=== PATIENT | female | born 1990 | race Caucasian/White ===

== ENCOUNTER → 2020-01-04 13:29 | Outpatient (CLI) | payer MEDICAID, SELFPAY ==
[2020-01-04 14:13] LABS: Hemoglobin 12.2 g/dL (12.0-15.0); Mean Corp Hgb Conc 33.9 g/dL (32-36); Mean Corpuscular Volume 91.6 fL (81-99); Mean Platelet Vol. 10.8 fl (6.2-12.0); Platelet Count 199 K/mm3 (150-450); RBC Distribution Width CV 12.7 % (11.6-14.6); RBC Distribution Width SD 42.1 fl (35.1-43.9); Red Blood Count 3.93 M/mm3 (4.2-5.4); White Blood Count 10.9 K/mm3 (4.4-11.0)
[2020-01-04 14:27] LABS: Glucose Challenge Gest 1H 50g 84 mg/dL (70-140)
== END ==
PROVIDERS: Visit Provider Obstetrics & Gynecology
DX: Z34.83 Encounter for supervision of other normal pregnancy, third trimester (principal)
CPT/HCPCS: 36415; 82950; 85027

== ENCOUNTER → 2020-01-29 15:37 | Outpatient (CLI) | payer MEDICAID, SELFPAY ==
[2020-01-29 16:51] LABS: Hematocrit 35.2 % (37-47); Hemoglobin 11.5 g/dL (12.0-15.0); Mean Corp Hgb Conc 32.7 g/dL (32-36); Mean Corpuscular Hgb 30.1 pg (27.0-32.0); Mean Corpuscular Volume 92.1 fL (81-99); Platelet Count 172 K/mm3 (150-450); RBC Distribution Width CV 12.7 % (11.6-14.6); RBC Distribution Width SD 42.9 fl (35.1-43.9); Red Blood Count 3.82 M/mm3 (4.2-5.4); White Blood Count 11.6 K/mm3 (4.4-11.0)
[2020-01-29 17:06] LABS: Protein, Urine (Random) 16.6 mg/dL (<11.9); Protein:Creat Ratio 177 mg/g CRE (0-200)
[2020-01-29 17:12] LABS: ALB/GLOB Ratio 0.6 RATIO (0.9-2.4); AST(SGOT) 13 U/L (15-37); Alanine Aminotransfer ALT/SGPT 20 U/L (13-56); Albumin, Serum 2.7 g/dL (3.2-5.0); Alkaline Phosphatase 117 U/L (45-117); Anion Gap 6 (5-15); BUN 7 mg/dL (7-18); BUN/Creat Ratio 13.4 RATIO (10-20); Chloride 107 mmol/L (98-107); Creatinine, Serum 0.52 mg/dL (0.55-1.02); EST Glomerular Filtration Rate 147 mL/min (>60); Est Glom Filt Rate - Afr Amer 178 mL/min (>60); Globulin 4.5 g/dL (2.2-4.2); Glucose 74 mg/dL (74-106); LDH 141 U/L (84-246); Potassium 3.7 mmol/L (3.5-5.1); Protein, Total 7.2 g/dL (6.4-8.2); Sodium Level 136 mmol/L (136-145)
== END ==
PROVIDERS: Visit Provider Student in an Organized Health Care Education/Training Program
DX: O13.9 Gestational [pregnancy-induced] hypertension without significant proteinuria, unspecified trimester (principal); Z3A.00 Weeks of gestation of pregnancy not specified
CPT/HCPCS: 36415; 80053; 82570; 83615; 84156; 85027; 87077; 87086; 87088

== ENCOUNTER → 2020-02-22 17:01 | Outpatient (CLI) | payer MEDICAID, SELFPAY ==
[2020-02-22 18:05] LABS: Hematocrit 34.8 % (37-47); Hemoglobin 11.8 g/dL (12.0-15.0); Mean Corp Hgb Conc 33.9 g/dL (32-36); Mean Corpuscular Hgb 31.4 pg (27.0-32.0); Mean Corpuscular Volume 92.6 fL (81-99); Mean Platelet Vol. 10.9 fl (6.2-12.0); Platelet Count 183 K/mm3 (150-450); RBC Distribution Width CV 13.1 % (11.6-14.6); RBC Distribution Width SD 43.5 fl (35.1-43.9); Red Blood Count 3.76 M/mm3 (4.2-5.4); White Blood Count 11.4 K/mm3 (4.4-11.0)
[2020-02-22 18:29] LABS: ALB/GLOB Ratio 0.6 RATIO (0.9-2.4); AST(SGOT) 17 U/L (15-37); Alanine Aminotransfer ALT/SGPT 29 U/L (13-56); Albumin, Serum 2.8 g/dL (3.2-5.0); Alkaline Phosphatase 133 U/L (45-117); Anion Gap 7 (5-15); BUN 9 mg/dL (7-18); BUN/Creat Ratio 14.9 RATIO (10-20); Calcium,Total 9.2 mg/dL (8.5-10.1); Chloride 108 mmol/L (98-107); Creatinine, Serum 0.61 mg/dL (0.55-1.02); EST Glomerular Filtration Rate 124 mL/min (>60); Est Glom Filt Rate - Afr Amer 150 mL/min (>60); Globulin 4.7 g/dL (2.2-4.2); Glucose 103 mg/dL (74-106); LDH 158 U/L (84-246); Potassium 3.6 mmol/L (3.5-5.1); Protein, Total 7.5 g/dL (6.4-8.2); Sodium Level 137 mmol/L (136-145)
[2020-02-22 18:36] LABS: Protein, Urine (Random) 51.1 mg/dL (<11.9); Protein:Creat Ratio 197 mg/g CRE (0-200)
== END ==
PROVIDERS: Visit Provider Student in an Organized Health Care Education/Training Program
DX: Z36.85 Encounter for antenatal screening for Streptococcus B (principal); R03.0 Elevated blood-pressure reading, without diagnosis of hypertension
CPT/HCPCS: 36415; 80053; 82570; 83615; 84156; 85027; 87081; 87086

== ENCOUNTER 2020-02-27 12:05 | Outpatient (CLI) | payer MEDICAID, SELFPAY ==
[2020-02-27 12:35] VITALS: BP 136/84; PULSE 92; TEMP 36.6
[2020-02-27 12:37] VITALS: PULSE 97; O2SAT 97
[2020-02-27 12:38] VITALS: BMI 53.9
--- NOTE | 2020-02-27 12:48 | NURSING ---
1246-pt here for celestone injection, blood presure check and pre-e labs, to start 24 hour urine. orders called in prior to pt arrival
[2020-02-27 12:51] VITALS: BP 135/79; PULSE 86
[2020-02-27 13:06] LABS: Hematocrit 34.1 % (37-47); Hemoglobin 11.5 g/dL (12.0-15.0); Mean Corp Hgb Conc 33.7 g/dL (32-36); Mean Corpuscular Volume 91.9 fL (81-99); Mean Platelet Vol. 10.9 fl (6.2-12.0); Platelet Count 170 K/mm3 (150-450); RBC Distribution Width CV 13.1 % (11.6-14.6); RBC Distribution Width SD 43.3 fl (35.1-43.9); Red Blood Count 3.71 M/mm3 (4.2-5.4); White Blood Count 10.4 K/mm3 (4.4-11.0)
[2020-02-27 13:21] VITALS: BP 133/75; PULSE 94
[2020-02-27 13:37] LABS: Protein, Urine (Random) 30.3 mg/dL (<11.9); Protein:Creat Ratio 135 mg/g CRE (0-200)
[2020-02-27] MEDS: Betamethasone/Betamethasone 30 MG/5 ML Vial 12 MG IM (13:37)
[2020-02-27 13:46] LABS: AST(SGOT) 18 U/L (15-37); Alanine Aminotransfer ALT/SGPT 33 U/L (13-56); Creatinine, Serum 0.44 mg/dL (0.55-1.02); EST Glomerular Filtration Rate 182 mL/min (>60); Est Glom Filt Rate - Afr Amer 220 mL/min (>60); Estimated Creatinine Clearance 169.76 ml/min; Uric Acid 3.9 mg/dL (2.6-6.0)
--- NOTE | 2020-02-27 15:23 | NURSING ---
1521- pt was seen in the office prior to coming into the hospital.
[2020-02-28 16:37] LABS: 24 Hour Urine Protein 237.9 mg/24HR (<150 MG/24HR); 24HR. UA Prot. Total Volume 775 mL; Urine Protein (24 Hour) 30.7 mg/dL (<11.9)
--- NOTE | 2020-03-05 07:19 | OB.TRI.NOTE ---
History of Present Illness Was patient seen by the physician?: No Reason For Visit: BP CHECK/INJECTION Date of Service: 02/27/20 Final SAMANTA: 03/16/20 Final SAMANTA Source: US <20 weeks Gestational age: 38 Weeks and 3 Days History of Present Illness: 36+ week intrauterine with gestational hypertension presents for Celestone injection. Allergies No Known Allergies Allergy (Verified 02/27/20 12:51) Laboratory Studies: Laboratory Tests 02/27/20 02/27/20 02/27/20 Range/Units 13:07 12:51 12:45 WBC (4.4-11.0) K/mm3 RBC (4.2-5.4) M/mm3 Hgb (12.0-15.0) g/dL Hct (37-47) % MCV (81-99) fL MCH (27.0-32.0) pg MCHC (32-36) g/dL RDW Std Deviation (35.1-43.9) fl RDW Coeff of Josie (11.6-14.6) % Plt Count (150-450) K/mm3 MPV (6.2-12.0) fl Creatinine 0.44 L (0.55-1.02) mg/dL Estim Creat Clear Calc 169.76 ml/min Est GFR (MDRD) Af Amer 220 (>60) mL/min Est GFR (MDRD) Non-Af 182 (>60) mL/min Uric Acid 3.9 (2.6-6.0) mg/dL AST 18 (15-37) U/L ALT 33 (13-56) U/L U Random Total Protein 30.3 H (<11.9) mg/dL Urine Collection Time 24.0 (24.0) HOURS Timed Urine Volume 775 mL Urine Creatinine 225.00 (NO RANGE EST.) mg/dL Ur Total Protein 24 Hr 237.9 H (<150 MG/24HR) mg/24HR Protein/Creatinin Ratio 135 (0-200) mg/g CRE Urine Total Protein 30.7 H (<11.9) mg/dL 02/27/20 Range/Units 12:45 WBC 10.4 (4.4-11.0) K/mm3 RBC 3.71 L (4.2-5.4) M/mm3 Hgb 11.5 L (12.0-15.0) g/dL Hct 34.1 L (37-47) % MCV 91.9 (81-99) fL MCH 31.0 (27.0-32.0) pg MCHC 33.7 (32-36) g/dL RDW Std Deviation 43.3 (35.1-43.9) fl RDW Coeff of Josie 13.1 (11.6-14.6) % Plt Count 170 (150-450) K/mm3 MPV 10.9 (6.2-12.0) fl Creatinine (0.55-1.02) mg/dL Estim Creat Clear Calc ml/min Est GFR (MDRD) Af Amer (>60) mL/min Est GFR (MDRD) Non-Af (>60) mL/min Uric Acid (2.6-6.0) mg/dL AST (15-37) U/L ALT (13-56) U/L U Random Total Protein (<11.9) mg/dL Urine Collection Time (24.0) HOURS Timed Urine Volume mL Urine Creatinine (NO RANGE EST.) mg/dL Ur Total Protein 24 Hr (<150 MG/24HR) mg/24HR Protein/Creatinin Ratio (0-200) mg/g CRE Urine Total Protein (<11.9) mg/dL Physical Exam Vitals: Vital Signs Temp Pulse BP Pulse Ox 97.9 F 94 133/75 H 97 02/27/20 12:35 02/27/20 13:21 02/27/20 13:21 02/27/20 12:37 Impression/Plan 37+ weeks gestation with anticipated delivery later this week for gestational hypertension. For steroid injection to assist lung maturity.
== END 2020-02-27 13:45 | disposition home or self-care (01) ==
LOC: WPOUT 12:07 → WP 12:08
PROVIDERS: Referring Provider Obstetrics & Gynecology; Visit Provider Obstetrics & Gynecology
DX: O13.3 Gestational [pregnancy-induced] hypertension without significant proteinuria, third trimester (principal); Z3A.37 37 weeks gestation of pregnancy
CPT/HCPCS: 36415; 82565; 82570; 84156; 84450; 84460; 84550; 85027; 99218; G0378; J0702

== ENCOUNTER 2020-02-28 13:43 | Outpatient (CLI) | payer MEDICAID, SELFPAY ==
[2020-02-27 12:38] VITALS: BMI 53.9
[2020-02-28 14:03] VITALS: BP 162/85; PULSE 102
[2020-02-28] MEDS: Betamethasone/Betamethasone 30 MG/5 ML Vial 12 MG IM (14:06)
[2020-02-28 14:15] VITALS: BP 134/74; PULSE 86
[2020-02-28 14:25] VITALS: BP 130/71; PULSE 87
--- NOTE | 2020-02-28 14:30 | NURSING ---
Patient on unit for celestone injection. Rapid Covid test and 24 hour urine sent to lab. 12mg Celestone given IM in right thigh. BP 162/85, 134/74 and 130/71. Dr Lamar called and ok with discharge home. Patient to be on bedrest until coming in tomorrow for csection. Patient verbalized understanding and ambulated off unit at 1430
--- NOTE | 2020-03-05 07:29 | OB.TRI.NOTE ---
History of Present Illness Date of Service: 02/28/20 Was patient seen by the physician?: No Reason For Visit: INJECTION Date of Service: 02/28/20 Final SAMANTA: 03/16/20 Final SAMANTA Source: US <20 weeks Gestational age: 37 Weeks and 3 Days History of Present Illness: 37+ week intrauterine presents for second injection of Celestone. Due for delivery later in the week for gestational hypertension. Patient also presents with 24-hour urine which she started yesterday. Allergies No Known Allergies Allergy (Verified 02/27/20 12:51) Physical Exam Vitals: Vital Signs Pulse BP 87 130/71 H 02/28/20 14:25 02/28/20 14:25 Impression/Plan Early 37+ week intrauterine with anticipated delivery later in the week for gestational hypertension. Celestone given. Return for scheduled section.
== END 2020-02-28 14:30 | disposition home or self-care (01) ==
LOC: WPOUT 13:44 → WP 13:45
PROVIDERS: Referring Provider Obstetrics & Gynecology; Visit Provider Obstetrics & Gynecology
DX: O13.3 Gestational [pregnancy-induced] hypertension without significant proteinuria, third trimester (principal); Z3A.37 37 weeks gestation of pregnancy
CPT/HCPCS: 87426; 96372; 99218; G0378; J0702

== ENCOUNTER 2020-02-29 05:10 | Inpatient (IN) | payer MEDICAID, SELFPAY ==
[2020-02-29] VITALS (22 sets, daily range): BP systolic 96–135; BP diastolic 55–76; PULSE 59–106; RESP 14–18; TEMP 36.1–36.7; O2SAT 94–99; BMI 56.3
[2020-02-29] MEDS: Lactated Ringers 1,000 ML 999 ML IV (05:35)
[2020-02-29] MEDS: Acetaminophen 500 MG Tablet 1000 MG PO ×3 (05:45→18:13)
[2020-02-29 05:56] LABS: Absolute Lymphocyte Count 1.12 X10^3/uL (0.83-4.51); Absolute Neutrophil Count 8.6 X10^3/uL (2.0-7.7); Basophil# 0.02 X10^3/uL; Basophil% 0.2 % (0-1); Hematocrit 33.1 % (37-47); Hemoglobin 10.7 g/dL (12.0-15.0); Lymphocyte # 1.12 X10^3/ul (4.0); Lymphocyte % 10.9 % (19-41); Mean Corp Hgb Conc 32.3 g/dL (32-36); Mean Corpuscular Hgb 30.7 pg (27.0-32.0); Mean Corpuscular Volume 95.1 fL (81-99); Mean Platelet Vol. 10.8 fl (6.2-12.0); Monocyte% 3.9 % (0-10); NRBC Flagged by Analyzer 0 % (0-5); Neutrophil # 8.61 X10^3/uL (2.7-7.7); Neutrophil % 83.4 % (47-70); Platelet Count 167 K/mm3 (150-450); RBC Distribution Width CV 12.9 % (11.6-14.6); RBC Distribution Width SD 44.5 fl (35.1-43.9); Red Blood Count 3.48 M/mm3 (4.2-5.4); White Blood Count 10.3 K/mm3 (4.4-11.0)
[2020-02-29 06:13] LABS: Amphetamine Urine VISTA NEGATIVE (<1000 ng/mL); Barbiturate Urine VISTA NEGATIVE (< 200 ng/mL); Benzodiazepine Urine VISTA NEGATIVE (< 200 ng/mL); Cocaine Urine VISTA NEGATIVE (< 300 ng/mL); Ecstacy Urine VISTA NEGATIVE (< 500 ng/mL); Methadone Urine VISTA NEGATIVE (< 300 ng/mL); PCP Urine VISTA NEGATIVE (< 25 ng/mL); THC Urine VISTA POSITIVE (< 50 ng/mL); Vista UDS pH Range 6
[2020-02-29] MEDS: Lactated Ringers 1,000 ML 150 ML IV (06:35)
[2020-02-29] MEDS: Sodium Citrate/Citric Acid 30 ML UDC PO (07:06)
--- NOTE | 2020-02-29 07:19 | PCM.HP.BLA ---
History and Physical Date of Admission: 02/29/20 ACOG ANTEPARTUM RECORD - HISTORY AND PHYSICAL (02/29/2020) Name: EARLINE GREER History of This : This is a 29-year-old AB 4 who presents for primary section. She reports an extremely difficult vaginal vacuum assisted delivery with the last and does not desire to have labor. She also has a history of a repaired septated uterus in 2016. Recently she has had issues with gestational hypertension which is worsening with headaches reported. Given this she was given steroids to assist lung maturity and we plan delivery today at 37+ weeks gestation. OB Physician: JONY 's Physician: [facility] ...................................................................... : 1990 Age: 29 Address: [address] [place] [address] Phone: (h) [phone] ([phone] Insurance Carrier: [facility] [id number] Emergency Contact: NONE ...................................................................... Final SAMANTA: 03/16/20 By Ultrasound: PARITY: (G-Total Pregnancies P-Fullterm,Premature,Induced AB,Spont AB, Ectopics, Multiple,Living) SAMANTA CONFIRMATION: By LMP: 06/11/19 Final SAMANTA: 03/16/20 OB PROBLEM LIST: Needs ECHO after delivery per MFM Please enc office Class for Oct 3. 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 Obesity Prior Gestation Hypertension 2017 Recurrent losses; septated uterus = repaired 2015 --then had Seeing MFM for serial growth scans monthly Vac extraction delivery history ALLERGIES: Nicoderm CQ Rash, itching Wellbutrin Hives and/or rash MEDICATIONS: 28 mg iron-800 mcg tablet One pill by mouth once a day Valtrex 1 gram tablet once daily SOCIAL HISTORY: Smoking - Quit in 2015 Alcohol Use - RARELY not while Diet - balanced Diet, caffeine < 2 drinks per day and water tries for 5 20 oz bottles Lifestyle - low stress lifestyle Exercise - regular and walking 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 Illicit Drug Use - uses marijuana and stopped upon realizing Sexual Activity - Residence - lives with and and son Place of - [place] Hours Worked - 26 Spouse-Sig Other Name - Cassius Spouse-Sig Other Occupation - data warehouse consultant Spouse-Sig Other Phone No - [phone] Children Name(s) - Josué PRIOR DELIVERY HISTORY DEL DATE GEST LAB WT LB WT OZ TYPE ANES LABOR TX May 13 18 0 0 0 Sab None No May 14 12 0 0 0 Sab None No May 15 7 0 0 0 Sab None May 17 7 0 0 0 Sab None No Mar 19 37 48 6 6 Vag/V Epidural No ANTEPARTUM FLOW CHART VISIT GE RTC FU F F OR U U DATE WK MD WKS HT PN HR M SS BP ED WT OR GL D EF ST __ ____ ___ __ __ ___ __ __ __ ___ __ __ __ ___ __ 27 Oct 37 JMW 1 36 + + 140/76 sl 319 tr - 22 Oct 36 CM 1 37 V + + 162/80 sl 324 1+ ne 15 Jan 35 JMW 1 35 + + 110/86 sl 325 tr - 08 Jan 34 JMW 1 35 V + + 130/90 0 321 tr - 30 Sep 33 JMW 1 33 + + 136/80 sl 319 tr - 28 Sep 33 CM 1 35 + de 128/84 sl 322 tr - 18 Sep 31 JM 2 31 V + + 124/78 0 315 - - 10 Jan 30 + 128/80 0 309 - - 03 Jan 29 JMW 2 30 + + 110/68 0 308 - - 13 Dec 26 JMW 3 26 + + 136/82 sl 303 - - ANTEPARTUM NOTE(S): Feb 27 2020: see prog note, PIH labs; arslan POST; this week Feb 21 2020: Feb 14 2020: feeling well. Cxs on and off yesterday. AM, MFM growth u/s Feb 08 2020: feeling well., No PIH Sxs Jan 30 2020: No PIH sxs; MFM doing serial growths weekly Jan 29 2020: Decreased FM; BPP 12/08Jan 18 2020: No complaints Jan 10 2020: Jan 03 2020: Good FM, One Hr PG today Dec 14 2019: Feeling Well, Glucola/Instructions Given,Good FM COMPREHENSIVE ANTEPARTUM NOTE(S): Feb 27 2020: Earline is here today for visit. Patient states that she has been having problems with elevated blood pressures over the past couple of weeks. Patient states that she had an elevated BP this morning which was taken at office where she works. Patient states that she has been having visual floaters for a couple weeks. She had a headache Wednesday and Wednesday but no headache today. Patient states that she has been having n/v over the past couple of weeks as well but vomiting noted this morning. Patient does state at work they have her sit and use a large cuff. Patient's BP Left upper arm today sitting and large BP cuff. Patient denies any fevers. Jlb Feb 22 2020: Earline is here for PNV. States good FM. Had US at [facility] today and was told it looked good. Having CTX but they go away when she rests. Swelling noted in ankles and hands with associated carpal tunnel bilateral. Has questions regarding the birthing process at [facility]. Had a difficult first vaginal delivery and is considering c-sec. Urine dipped 1+ and neg. BP elevated 162/80. LARC form declined and signed. BP retake after 15 min is 148/80. LSS Feb 22 2020: 36/5w visit. GBS done, LARC declined would like Nuvaring. HSV on acyclovir. Elevated BP today, repeat still hypertensive rage but improved. Asymptomatic, labs drawn today in office. Hx of demise, getting testing with [facility]. COVID testing done today as pt may need induced next week. F/u 1w. Feb 22 2020: Order COVID testing faxed to [facility] per Dr. Monika Geller. [facility] Jan 28 2020: 33/2w visit acute for elevated BPs at work systolic 150s.BP wnl today. Asymptomatic aside from LE edema and some nausea over the past 1w. Labs drawn today. Reports decreased FM, BPP 8/8. Has apt this week, keep as scheduled. Precautions given. Jan 19 2020: Earline is here for a PNV with her 2 y.o. son. Good FM. No edema present. Denies any complaints or concerns. MK Jan 11 2020: Earline is here for a B/P check at 30 w 5 d. She had an elevated B/P at [facility] on 12/28/2019, and a headache with floaters on Wednesday. Denies headache since Wednesday. Denies further visual disturbances. Denies epigastric pain. No edema noted. She denies spotting/cramping/LoF. Good FM reported. B/P 128/80 (large cuff, L arm, sitting). Report to Dr. Lamar, no new orders, Earline is to keep her previously scheduled PNV appointment for next week. She will call if she notes any problems. AW Jan 10 2020: Esther from [facility] called to say she is faxing echo results from visit yesterday and growth US from 12/28/19. Also wants to advise BP 148/77 yesterday and informed Earline to call us w/any POST, visual changes, abdominal pain. I called Earline this morning and attempted to have her come to the office today for BP check, but she is not able to come. Appt given for tomorrow morning on nurse schedule. She had a POST w/visual floaters noted evening, but none yesterday and none today. Advised if she would have Sx today, to come in for appt today if possible. Otherwise will see her in the morning. Jan 04 2020: Earline is here today for PNV. Had her glucola test today. Good FM. No edema noted. No CTX noticed. Feeling well with no complaints. Urine dipped neg and neg today. LSS Dec 13 2019: TELEHEALTH NOB TRANSFER- Earline is a 29 yo G 6 P 1 with SAMANTA 11-14-20 planning a vag del with epidural using [facility] for post discharge ped care and to breastfeed. 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 Her , Cassius is a data warehouse consultant. The was planned and they are happy. They have a 2 1/2 yo son, Josué. Earline is allergic to Wellbutrin and the nicotine patch. She has no allergies to food, latex or the environment. Her diet sounds balanced w one cup of coffee daily and 5 20 oz bottles of water. Enc to get as close to one gallon daily as she can. She takes a 20-30 minute walk most evenings. Enc to continue this. She does not drink alcohol in , used to smoke but quit in [address] use. Of note is initial labs were positive for marijuana. She said she quit upon realizing the . Medical history includes obesity, hypertension, HSV type 2, depression and anxiety (mostly due to multiple SABs). Family history includes depression, alcoholism, heart disease, hypertension and colon cancer. US and labs were done previously at [facility]. Earline has no cats but she is aware of litter box issues. She's had a varicella vaccine. Warning signs in pg reviewed as well as wearing her seatbelt very low on her abd, the importance of protein in her diet, lifting restriction of 25# and otc meds ok to take. Tomorrow at her first visit here she needs all office OB info and a copy of What to Expect. did not go well last time re to 37 week baby with long induction labor and jaundice. Office Class in January suggested. Enc to call with any questions. Visit took 45 min. Niko DUBOSE. REVIEW OF SYSTEMS: GENERAL - Denies fever, or chills SKIN - Denies rash, new skin lesions, or change in moles EYES - Denies blurred vision, or change in visual acuity EARS - Denies ear pain, or difficulty hearing NOSE - Denies nasal congestion, discharge, or bleeding MOUTH - Denies sore throat, or difficulty swallowing NECK - Denies pain or swelling RESPIRATORY - Denies shortness of breath, cough, wheezing CARDIOVASCULAR - Denies palpitations, chest pain, orthopnea, PND, peripheral edema, syncope or claudication GASTROINTESTINAL - Denies nausea, vomiting, diarrhea, constipation, Denies abdominal pain, melena and or bright red blood GENITOURINARY - Denies dysuria, frequency of urination, urgency, or hesitancy MUSCULOSKELETAL - Denies joint or muscle pain, or back pain NEUROLOGICAL - Denies localized numbness, weakness, or tingling PSYCHIATRIC - Denies depression, anxiety, substance abuse or suicide attempts ENDOCRINE - Denies heat or cold intolerance, weight loss or gain, increasing thirst HEMATO-IMMUNOLOGIC - Denies easy bruising, bleeding, oral ulcerations or recurrent infections GENETICS SCREENING: Age 35+ years: No Thalassemia: No Neural Tube Defect: No Down Syndrome: No BRIDGER-SACHS: No Sickle Cell Disease: No Hemophilia: No Musc. Dystrophy: No Cystic Fibrosis: No-declines screening Jasper Chorea: No Mental Retardation: No Fragile X: No Other genetic: No Other defects: No SABs/still births: Yes x4 Drugs since LMP: Yes INFECTION HISTORY: High risk AIDS: No High risk Hepatitis: No Exposed to TB: No Exposed to Herpes: No Rash/viral illness since LMP: No History of STD: No MENSTRUAL HISTORY: *Menses Regularity: Regular* PAST SUMMARY: PARITY: 1. Total Pregnancies............ 6 2. Full Term Pregnancies........ 1 3. Premature.................... 0 4. Abortions - Induced.......... 0 5. Abortions - Spontaneous...... 4 6. Ectopics..................... 0 7. Multiple Births.............. 0 8. Living Children.............. 1 PAST #1: Date of :.................. 05/03/10 Gestation Weeks:................ 18 Length of labor(hours):......... 0 Sex:............................ Weight-lbs:............... 0 Weight-oz:................ 0 Type of Delivery:............... Sab Type of Anesthesia:............. None Place of Delivery:.............. HOME Treatment of Labor?:.... No Comment: PAST #2: Date of :.................. 05/03/11 Gestation Weeks:................ 12 Length of labor(hours):......... 0 Sex:............................ Weight-lbs:............... 0 Weight-oz:................ 0 Type of Delivery:............... Sab Type of Anesthesia:............. None Place of Delivery:.............. [facility] Treatment of Labor?:.... No Comment: PAST #3: Date of :.................. 05/03/12 Gestation Weeks:................ 7 Length of labor(hours):......... 0 Sex:............................ Weight-lbs:............... 0 Weight-oz:................ 0 Type of Delivery:............... Sab Type of Anesthesia:............. None Place of Delivery:.............. [place] Treatment of Labor?:.... No Comment: PAST #4: Date of :.................. 05/03/14 Gestation Weeks:................ 7 Length of labor(hours):......... 0 Sex:............................ Weight-lbs:............... 0 Weight-oz:................ 0 Type of Delivery:............... Sab Type of Anesthesia:............. None Place of Delivery:.............. [facility] Treatment of Labor?:.... No Comment: D AND C PAST #5: Date of :.................. 03/31/17 Gestation Weeks:................ 37 Length of labor(hours):......... 48 Sex:............................ M Weight-lbs:............... 6 Weight-oz:................ 6 Type of Delivery:............... Vag/Vac Type of Anesthesia:............. Epidural Place of Delivery:.............. [facility] Treatment of Labor?:.... No Comment: RAFAELA, SHELLY, PHYSICAL EXAMINATION General Appearence: 29 yo female in no acute distress Vital Signs: AF, VSS Heart: RRR without rubs or gallops Lungs: CTA x 2 Breasts: deferred Abdomen: gravid Pelvis: Cervix: Presentation: cephalic Station: Fetus: Size: AGA Movement: present Heart: present Labs for : EARLINE GREER since 06/20/2019 ORDER DATEIN DESCRIPTION VALUE UNITS RANGE A+ COMMENT TYPE AND SCREEN 02/29/20 Reason for Type AND Screen/Red Cells: SURGERY Type of Surgery: [facility]~[address] [place], [address]~ BLOOD TYPE GEL O POSITIVE N ANTIBODY SCREEN NEGATIVE N URINE DRUG SCREEN (VISTA) 02/29/20 NOTE Original Ordering Provider: Melita Lamar TO BE CONFIRMED CONFIRMATORY TESTING FOR ALL POSITIVE URINE DRUG SCREEN RESULTS WILL ONLY BE SENT OUT UPON PHYSICIAN ORDER. VISTA Urine Drug Screen methods provide only preliminary analytical test results. A more specific alternate chemical method must be used in order to obtain a confirmed analytical result. Gas chromatography/mass spectrometery (GC/MS) is the preferred confirmatory method. Clinical consideration and professional judgement should be applied to any drug of abuse test result, particularly when preliminary positive results are used. URINE TCA TESTING MUST BE ORDERED SEPARATELY. USE TEST MNEMONIC: [facility]IST[facility] UDS PH 6 AMPHETAMINES NEGATIVE <1000 ng/mL BARBITIURATES NEGATIVE < 200 ng/mL BENZODIAZIPINE NEGATIVE < 200 ng/mL COCAINE NEGATIVE < 300 ng/mL ECSTACY NEGATIVE < 500 ng/mL METHADONE NEGATIVE < 300 ng/mL OPIATES NEGATIVE < 300 ng/mL PCP NEGATIVE < 25 ng/mL THC POSITIVE < 50 ng/mL H CBC W/DIFF, AUTOMATED 02/29/20 NOTE Original Ordering Provider: Melita Lamar WBC 10.3 K/mm3 4.4-11.0 RBC 3.48 M/mm3 4.2-5.4 L HGB 10.7 g/dL 12.0-15.0 L HCT 33.1 % 37-47 L MCV 95.1 fL 81-99 MCH 30.7 pg 27.0-32.0 MCHC 32.3 g/dL 32-36 RDW CV 12.9 % 11.6-14.6 RDW SD 44.5 fl 35.1-43.9 H PLT 167 K/mm3 150-450 MPV 10.8 fl 6.2-12.0 NEUT% 83.4 % 47-70 H LY% 10.9 % 19-41 L MONO% 3.9 % 0-10 EO% 0.0 % 0-5 BASO% 0.2 % 0-1 IM GRAN % 1.600 % 0.0-0.9 H IG% - Immature Granulocytes (promyelocytes, myelocytes and metamyelocytes) > 1% indicates that a LEFT SHIFT is Present. ABSOLUTE NEUT 8.6 X10 3/uL 2.0-7.7 H ABSOLUTE LYMPH 1.12 X10 3/uL 0.83-4.51 NRBC, FLAGGED 0 % 0-5 COVID 19 AG RAPID (RN COLLECT) 02/28/20 NOTE Original Ordering Provider: Melita Lamar COVID AG -RAPID *Negative results from patients with symptom onset beyond five days should be treated as presumptive and confirmed by a molecular assay if clinically necessary. Negative results should not be used as the sole basis for treatment or for patient management. *Positive results do not differentiate between SARS-CoV and SARS-CoV-2. If differentation of the specific SARS virus is desired an additional sample and an additional order is required. * This test has not been FDA cleared or approved; the test has been authorized by FDA under an Emergency Use Authorization (EAU) for use by laboratories certified under CLIA that meet the requirements to perform moderate, high, or waived complexity tests. Normal Reference Range: Negative Testing performed on Quidel Cari analyzer ELLIOT (lateral flow immunofluorescent assay) SARS-CoV-2 (COVID 19) Negative PROTEIN+CREATININE RATIO,URINE 02/27/20 NOTE Original Ordering Provider: Melita Lamar UR CREAT 225.00 mg/dL NO RANGE EST. PROTEIN,UR.RAN. 30.3 mg/dL <11.9 H PROT:CRE RATIO 135 mg/g CRE 0-200 PROTEIN, URINE 24HR 02/27/20 NOTE Original Ordering Provider: Melita Lamar UR COLLECT TIME 24.0 HOURS 24.0 UR TOTAL VOLUME 775 mL URINE PROTEIN 30.7 mg/dL <11.9 H 24HR UR PROTEIN 237.9 mg/24HR <150 MG/24HR H ALANINE AMINOTRANSFERAS (SGPT) 02/27/20 NOTE Original Ordering Provider: Melita Lamar ALT 33 U/L 13-56 URIC ACID 02/27/20 NOTE Original Ordering Provider: Melita Lamar URIC 3.9 mg/dL 2.6-6.0 The drugs N-Acetylcysteine and Metamizole may falsely depress this assay. AST(SGOT) 02/27/20 NOTE Original Ordering Provider: Melita Lamar AST 18 U/L 15-37 SERUM CREATININE AND GFR 02/27/20 NOTE Original Ordering Provider: Melita Lamar CREAT,SERUM 0.44 mg/dL 0.55-1.02 L The validity of the calculated GFR AND GFRAA in patients over 70 years has not been determined. Clinical correlation is essential. EST GFR 182 mL/min >60 Non- GFR Calc EST GFR - AA 220 mL/min >60 GFR Calc ESTIMATED CRCL 169.76 ml/min CBC-COMPLETE BLOOD CNT NO DIFF 02/27/20 NOTE Original Ordering Provider: Melita Lamar WBC 10.4 K/mm3 4.4-11.0 RBC 3.71 M/mm3 4.2-5.4 L HGB 11.5 g/dL 12.0-15.0 L HCT 34.1 % 37-47 L MCV 91.9 fL 81-99 MCH 31.0 pg 27.0-32.0 MCHC 33.7 g/dL 32-36 RDW CV 13.1 % 11.6-14.6 RDW SD 43.3 fl 35.1-43.9 PLT 170 K/mm3 150-450 MPV 10.9 fl 6.2-12.0 Reviewed by MELITA LDH 02/22/20 NOTE Original Ordering Provider: Monika Geller LDH 158 U/L 84-246 Reviewed by ALEX COMPREHENSIVE METABOLIC PROFIL 02/22/20 NOTE Original Ordering Provider: Monika Geller GLU 103 mg/dL 74-106 Fasting Glucose result from 100 to 125 mg/dL suggests IMPAIRED HOMEOSTASIS per A.D.A. criteria. Please note revised GLUCOSE reference range effective 06/04/2017. BUN 9 mg/dL 7-18 CREAT,SERUM 0.61 mg/dL 0.55-1.02 The validity of the calculated GFR AND GFRAA in patients over 70 years has not been determined. Clinical correlation is essential. EST GFR 124 mL/min >60 Non- GFR Calc EST GFR - AA 150 mL/min >60 GFR Calc BUN/CRE 14.9 RATIO 10-20 T PROT 7.5 g/dL 6.4-8.2 ALB 2.8 g/dL 3.2-5.0 L GLOB 4.7 g/dL 2.2-4.2 H A/G 0.6 RATIO 0.9-2.4 L CA 9.2 mg/dL 8.5-10.1 AST 17 U/L 15-37 ALK P 133 U/L 45-117 H ALT 29 U/L 13-56 T BILI 0.20 mg/dL 0.20-1.00 For patients on eltrombopag therapy, use of Dimension [place] TBIL is not recommended. NA 137 mmol/L 136-145 K 3.6 mmol/L 3.5-5.1 CL 108 mmol/L 98-107 H CO2 22.0 mmol/L 21.0-32.0 GAP 7 5-15 Reviewed by ALEX CBC-COMPLETE BLOOD CNT NO DIFF 02/22/20 NOTE Original Ordering Provider: Monika Geller WBC 11.4 K/mm3 4.4-11.0 H RBC 3.76 M/mm3 4.2-5.4 L HGB 11.8 g/dL 12.0-15.0 L HCT 34.8 % 37-47 L MCV 92.6 fL 81-99 MCH 31.4 pg 27.0-32.0 MCHC 33.9 g/dL 32-36 RDW CV 13.1 % 11.6-14.6 RDW SD 43.5 fl 35.1-43.9 PLT 183 K/mm3 150-450 MPV 10.9 fl 6.2-12.0 Reviewed by ALEX CULTURE, URINE 02/22/20 NOTE Original Ordering Provider: Monika Geller Urine Culture Culture exhibits no growth. Reviewed by MELITA MCBRIDE, GROUP B STREPTOCOCCUS 02/22/20 NOTE Original Ordering Provider: Monika Geller NARGIS Culture Group B Beta Streptococcus is not isolated. Reviewed by MELITA PROTEIN+CREATININE RATIO,URINE 02/22/20 NOTE Original Ordering Provider: Monika Geller UR CREAT 260.00 mg/dL NO RANGE EST. PROTEIN,UR.RAN. 51.1 mg/dL <11.9 H PROT:CRE RATIO 197 mg/g CRE 0-200 Reviewed by MELITA CULTURE, URINE 01/29/20 NOTE Original Ordering Provider: Monika Geller Urine Culture Below infection level. ORGANISM 1: GNR lactose health support specialist [place] Count 1000-10,000 Reviewed by MELITA Reviewed by MELITA LDH 01/29/20 NOTE Original Ordering Provider: Monika Geller LDH 141 U/L 84-246 Reviewed by MELITA COMPREHENSIVE METABOLIC PROFIL 01/29/20 NOTE Original Ordering Provider: Monika Geller GLU 74 mg/dL 74-106 Please note revised GLUCOSE reference range effective 06/04/2017. BUN 7 mg/dL 7-18 CREAT,SERUM 0.52 mg/dL 0.55-1.02 L The validity of the calculated GFR AND GFRAA in patients over 70 years has not been determined. Clinical correlation is essential. EST GFR 147 mL/min >60 Non- GFR Calc EST GFR - AA 178 mL/min >60 GFR Calc BUN/CRE 13.4 RATIO 10-20 T PROT 7.2 g/dL 6.4-8.2 ALB 2.7 g/dL 3.2-5.0 L GLOB 4.5 g/dL 2.2-4.2 H A/G 0.6 RATIO 0.9-2.4 L CA 9.0 mg/dL 8.5-10.1 AST 13 U/L 15-37 L ALK P 117 U/L 45-117 ALT 20 U/L 13-56 T BILI 0.30 mg/dL 0.20-1.00 For patients on eltrombopag therapy, use of Dimension [place] TBIL is not recommended. NA 136 mmol/L 136-145 K 3.7 mmol/L 3.5-5.1 CL 107 mmol/L 98-107 CO2 23.0 mmol/L 21.0-32.0 GAP 6 5-15 Reviewed by MELITA PROTEIN+CREATININE RATIO,URINE 01/29/20 NOTE Original Ordering Provider: Monika Geller UR CREAT 94.00 mg/dL NO RANGE EST. PROTEIN,UR.RAN. 16.6 mg/dL <11.9 H PROT:CRE RATIO 177 mg/g CRE 0-200 Reviewed by MELITA CBC-COMPLETE BLOOD CNT NO DIFF 01/29/20 NOTE Original Ordering Provider: Monika Geller WBC 11.6 K/mm3 4.4-11.0 H RBC 3.82 M/mm3 4.2-5.4 L HGB 11.5 g/dL 12.0-15.0 L HCT 35.2 % 37-47 L MCV 92.1 fL 81-99 MCH 30.1 pg 27.0-32.0 MCHC 32.7 g/dL 32-36 RDW CV 12.7 % 11.6-14.6 RDW SD 42.9 fl 35.1-43.9 PLT 172 K/mm3 150-450 MPV 11.0 fl 6.2-12.0 Reviewed by MELITA GLUCOSE CHALLENGE GEST 1H 50G 01/04/20 NOTE Original Ordering Provider: Melita Lamar GLU GEST 50G 1H 84 mg/dL 70-140 Reviewed by MELITA CBC-COMPLETE BLOOD CNT NO DIFF 01/04/20 NOTE Original Ordering Provider: Melita Lamar WBC 10.9 K/mm3 4.4-11.0 RBC 3.93 M/mm3 4.2-5.4 L HGB 12.2 g/dL 12.0-15.0 HCT 36.0 % 37-47 L MCV 91.6 fL 81-99 MCH 31.0 pg 27.0-32.0 MCHC 33.9 g/dL 32-36 RDW CV 12.7 % 11.6-14.6 RDW SD 42.1 fl 35.1-43.9 PLT 199 K/mm3 150-450 MPV 10.8 fl 6.2-12.0 Reviewed by MELITA Panel-Diabetic 08/23/19 Hemoglobin A1c 5.0 %Total Hgb <6.5 Reviewed by MELITA Other 08/23/19 Unusual lab NOT DETECTED HEP C AB Reviewed by MELITA Drug Screen 08/23/19 Marijuana POSITIVE Negative Cocaine NEG Negative Amphetamines NEG Negative Barbituates NEG Negative Reviewed by MELITA Panel-Thyroid 08/23/19 Free T-4 Index 0.94 mg/dl 0.8-1.8 Thyroid Stimulating Hormone 1.391 micro IU/ml 0.4-5.5 Reviewed by MELITA PAP Smear 08/23/19 PAP Test NEG Normal Reviewed by MELITA GC-Chlamydia 08/23/19 Chlamydia NEG Negative GC NEGATIVE No Growth Reviewed by MELITA Initial OB Labs 08/23/19 Blood Type O Rh Type POS Antibody Screen NEG Negative Hemoglobin Initial OB 12.7 Hematocrit Initial OB 36.9 PLT 220 Rubella IMMUNE Immune VDRL NON-REACTIVE Non Reactive HBsAg NEGATIVE Negative HIV Test NEGATIVE Negative Reviewed by MELITA PROVIDER SIGNATURE ( REQUIRED) Impression /Plan: 37+ week intrauterine with gestational hypertension and a history of surgery to the uterus. Plan primary . Preparations in progress for delivery.
--- NOTE | 2020-02-29 07:29 | OP.PCM_ITS ---
Delivery Classification: Scheduled Final SAMANTA: 03/16/20 Final SAMANTA Source: US <20 weeks Gestational age: 37 Weeks and 5 Days director corporate security: Wing Chu Type of Anesthesia:: Spinal - With Duramorph Date of Procedure: 02/29/20 Pre-Operative Diagnosis: Gestational Hypertension, Prior Uterine Incision Post-Operative Diagnosis: Gestational Hypertension, Prior Uterine Incision Description of Procedure: Surgeon: Michoacano Lamar MD, FACOG Anesthesia: Sary Bernard MD Procedure: Primary low Transverse Cervical Caesarean Section Findings: Viable female with Apgars of 8/9 in occiput anterior presentation with clear amniotic fluid and normal three-vessel placenta. Indication: This is a 29-year-old who presents for her first at 37+5 weeks gestation. care has otherwise been eventful for a prior uterine septation excision and gestational hypertension with this . With her last she also had what she describes as a traumatic vacuum extraction delivery and she desires to avoid any chance of this occurring again. The patient has been counseled regarding the risk and indications of this procedure including the possibility of bleeding infection and injury to surrounding structures such as bowel bladder. All questions were answered. Procedure: Patient was taken to the operating room where after spinal anesthesia was placed, the patient was prepped and draped in usual sterile fashion and a Nuñez catheter was placed. The abdomen was entered through a Pfannenstiel incision and peritoneum was entered bluntly. After developing a bladder flap on the lower uterine segment a low transverse incision was made on the uterus and head was easily delivered onto the operative field the nose mouth and oropharynx were bulb suctioned. Subsequently a viable female was born with Apgars of 8/9. The was noted to cry move all extremities vigorously on the operative field. The umbilical cord was doubly clamped and ligated and infant handed to the nursery personnel who were present for the delivery. Placenta was delivered and noted to be 3 vessels and normal. Uterus was exteriorized and remaining placental tissue was removed. The uterus was then closed in 2 layers first with running locked 0 Vicryl suture followed by a second imbricating layer with 0 Vicryl suture. 0 Vicryl suture was then used in a horizontal mattress interrupted fashion to affect final hemostasis of the uterine incision line. Normal fallopian tubes and ovaries were visualized and the uterus was returned to the pelvis. Hemostasis was noted and rectus abdominis muscles were reapproximated in the midline with interrupted Number 0 Vicryl suture in a horizontal mattress fashion. Fascia was closed with running Number 1 PDS Strata fix suture. Subcutaneous tissue was irrigated with copious amouts of saline solution and then closed with running 3-0 Vicryl suture. Skin was closed with 4-0 monocryl suture in a running subcuticular fashion. Steri strips and a Mepilex dressing were placed across the incision. The patient tolerated the procedure well and was taken to the recovery room in satisfactory condition. Sponge, needle, and instrument counts were all reportedly correct. EBL was 500 cc. Ancef 3 gms IV was given prior to the procedure. Spicemen to Pathology: None Complications: None Amniotic Fluid Description: Clear Placenta Disposition: [facility] Specimen(s) sent to pathology: None Drain: Nuñez to straight drain Cord Entanglement: None Cord Vessel Description: 3 Vessels Esitmated Blood Loss (ml): 500 cc Infant Gender: Female (1 minute): 8 (5 minute): 9 Antibiotic Given: Ancef 3 grams IV x1 Pt instructed on risks of surgery: Bleeding, Infection, Injury to surrounding structure(s) including bowel and bladder Complications: None - Admit VTE Documentation VTE Present on Admission: Yes VTE Mechan Device Prophylaxis: SCD's VTE Pharm Prophylaxis ordered?: Yes
--- NOTE | 2020-02-29 07:32 | DCINST_ITS ---
<Michoacano Lamar - Last Filed: 02/29/20 07:32> Discharge Diet: No Restrictions Discharge Activity: May not drive while taking narcotic pain medications., May Shower, May Take a Tub Bath May resume sexual activity in: 4-6 weeks Lifting Restrictions: 20 pounds Additional Activity Instructions:: Nothing in the vagina for 4-6 weeks. You may return to work/school in 6 weeks. Call your doctor if your incision/area has: Continuous Slow Oozing, Sudden Increased Bleeding, Increased Pain/ Swelling, Increased Redness, Foul Smelling Discharge Call your doctor if you observe: Fever of 101 or Higher, Inability to urinate, Inability to have a bowel movement, Using more than one pad per hour Additional Instructions: If you experience any of the following, contact your healthcare provider. * Bleeding that soaks a pad every hour for 2 hours * Fever 100.4 or higher * Unrelieved incision or abdominal pain * Swelling, redness, discharge or bleeding from your incision or episiotomy site * Your incision begins to separate * Problems urinating (including inability to urinate or burning while urinating). * Visual changes * Severe headache * Flu-like symptoms * Pain or redness in one of both of your breasts * Pain, warmth, tenderness or swelling in your legs, especially the calf area * Frequent nausea and vomiting * Symptoms of depression or anxiety If you experience any of the following, call 911 or go to the nearest Emergency Room. * Chest pain * Problems breathing * Seizure activity * Partial or complete paralysis of a body part, slurred speech, weakness or drooping of the face, or a sudden inability to walk or hold your balance Allergies/Adverse Reactions: Allergies No Known Allergies Allergy (Verified 02/27/20 12:51) Medications to take at Discharge Vits [Prenatabs FA] 1 tab PO DAILY 02/27/20 Docusate Sodium [Colace] 100 mg PO BID PRN PRN #60 cap 02/29/20 Oxycodone [Oxyir] 5 mg PO Q6H PRN PRN 7 Days #20 tab 02/29/20 Ferrous Sulfate 325 mg PO DAILY 30 Days #30 tab 03/01/20 The following prescriptions were given: Docusate Sodium [Colace] 100 mg PO BID PRN PRN #60 cap PRN Reason: Constipation Transmission Status: Received by [facility] Ferrous Sulfate 325 mg PO DAILY 30 Days #30 tab Transmission Status: Pending to [facility] Oxycodone [Oxyir] 5 mg PO Q6H PRN PRN 7 Days #20 tab PRN Reason: Pain Score 6-10 Transmission Status: Received by [facility] Follow-Up: Call to make an appointment with your doctor for an incision check in 1-2 weeks. You will also need a 6 week post- follow up appointment. Test results from this visit will be discussed in further detail at your follow- up appointment, if applicable. Please Follow Up With: Michoacano Lamar MD - [phone] When: Call to make an appointment for an incision check in 2 weeks. Primary Care Physician: Care Physician,No Primary [Primary Care Provider] - <Agapito Geller - Last Filed: 03/01/20 10:15> Additional Instructions: If you experience any of the following, contact your healthcare provider. * Bleeding that soaks a pad every hour for 2 hours * Fever 100.4 or higher * Unrelieved incision or abdominal pain * Swelling, redness, discharge or bleeding from your incision or episiotomy site * Your incision begins to separate * Problems urinating (including inability to urinate or burning while urinating). * Visual changes * Severe headache * Flu-like symptoms * Pain or redness in one of both of your breasts * Pain, warmth, tenderness or swelling in your legs, especially the calf area * Frequent nausea and vomiting * Symptoms of depression or anxiety If you experience any of the following, call 911 or go to the nearest Emergency Room. * Chest pain * Problems breathing * Seizure activity * Partial or complete paralysis of a body part, slurred speech, weakness or drooping of the face, or a sudden inability to walk or hold your balance Follow-Up: Call to make an appointment with your doctor for an incision check in 1-2 weeks. You will also need a 6 week post- follow up appointment. Test results from this visit will be discussed in further detail at your follow- up appointment, if applicable.
[2020-02-29] MEDS: Oxytocin 30 units/NS 500 ml 30 UNITS/500 ML IV.SOLN 167 UNITS IV (09:30)
[2020-02-29] MEDS: Lactated Ringers 1,000 ML 100 ML IV (12:40)
[2020-02-29] MEDS: Senna/Docusate Sodium 1 Tablet PO (15:04)
[2020-02-29] MEDS: Ketorolac 30 MG/ML Syringe IV (15:04)
[2020-02-29] MEDS: Ondansetron 4 MG/2 ML Vial IV (16:35)
--- NOTE | 2020-02-29 17:02 | CASEMGMT ---
Social Work Labor and Delivery unit Consult received and noted for maternal history of THC during and upon admission. Chart reviewed and noted baby was just delivered today. Patient/mother of baby's toxicology screen upon admission positive for marijuana. This time meconium is pending on baby, still waiting for urine sample. This development writer was informed by nursery RN that baby did urinate shortly after delivery prior to cotton ball being placed. PLAN: We will plan to see mother of baby on 03/01/2020 for assessment and provision of resources as indicated. -TIN Christie, MOLD RELEASE WORKER *Document created using [employer] system*
[2020-02-29] MEDS: 0.9% Saline Lock 10 ML Syringe IV (19:08)
[2020-02-29] MEDS: Enoxaparin 40 MG/0.4 ML Syringe SC (20:45)
[2020-02-29] MEDS: Ibuprofen 600 MG Tablet PO (22:15)
[2020-03-01] VITALS (9 sets, daily range): BP systolic 121–144; BP diastolic 58–87; PULSE 76–97; RESP 16–18; TEMP 36.4–36.7; O2SAT 97–99
[2020-03-01] MEDS: Acetaminophen 500 MG Tablet 1000 MG PO ×3 (00:50→13:06)
[2020-03-01] MEDS: Ibuprofen 600 MG Tablet PO ×2 (04:39→12:04)
[2020-03-01 04:54] LABS: Hematocrit 29.5 % (37-47); Hemoglobin 9.5 g/dL (12.0-15.0); Mean Corp Hgb Conc 32.2 g/dL (32-36); Mean Corpuscular Hgb 30.4 pg (27.0-32.0); Mean Corpuscular Volume 94.2 fL (81-99); Mean Platelet Vol. 10.2 fl (6.2-12.0); Platelet Count 154 K/mm3 (150-450); RBC Distribution Width CV 13.2 % (11.6-14.6); RBC Distribution Width SD 45.1 fl (35.1-43.9); Red Blood Count 3.13 M/mm3 (4.2-5.4); White Blood Count 11.2 K/mm3 (4.4-11.0)
--- NOTE | 2020-03-01 10:13 | PN.OBGYN_ITS ---
Subjective: No overnight complaints. Pain well controlled. Minimal lochia - Physical Exam Vitals/I&O's: Vital Signs Temp Pulse Resp BP Pulse Ox 97.6 F L 89 16 121/58 H 99 03/01/20 04:00 03/01/20 07:11 03/01/20 07:11 03/01/20 04:00 03/01/20 07:11 Oxygen Delivery Method Room Air Weight: 328 lb 7.82 oz Body Mass Index (BMI) 56.3 Intake and Output for Last 24 Hours 02/28/20 02/29/20 03/01/20 23:59 23:59 23:59 Intake Total 2947.5 / 2947.5 Output Total 975 / 1225 250 / 250 Balance 1972.5 / 1722.5 -250 / -250 General: Alert, Oriented x3, Cooperative, No apparent distress HEENT: Atraumatic, PERRLA Oral: Moist Mucosa Neck: Supple Abdomen: Bowel Sounds Present, Soft, Non Tender, Gravid - Fundus firm and below umbilicus, - - Abdominal bandage dry Extremities: No clubbing, No cyanosis, No edema Psych/Mental Status: Normal Affect, Appropriate, Alert and oriented to time, place, person, mood and affect Laboratory Results 03/01/20 04:40: WBC 11.2 H, RBC 3.13 L, Hgb 9.5 L, Hct 29.5 L, MCV 94.2, MCH 30.4, MCHC 32.2, RDW Std Deviation 45.1 H, RDW Coeff of Josie 13.2, Plt Count 154, MPV 10.2 Current Medications Acetaminophen (Acetaminophen 500 Mg Tablet) 1,000 mg PO Q6H [facility] Last Admin: 03/01/20 06:53 Dose: 1,000 mg Documented by: Bisacodyl (Bisacodyl 10 Mg Suppository) 10 mg RECTAL UD PRN PRN Reason: If no BM Diphenhydramine HCl (Diphenhydramine 25 Mg Capsule) 25 mg PO Q6H PRN PRN PRN Reason: ITCHING Stop: 03/01/20 14:17 Enoxaparin Sodium (Enoxaparin 40 Mg/0.4 Ml Syringe) 40 mg SC DAILY@1999 [facility] Last Admin: 02/29/20 20:45 Dose: 40 mg Documented by: Hydrocortisone (Hydrocortisone 2.5% Crm) 1 applic TOPICAL TID PRN PRN; Protocol PRN Reason: Discomfort Lactated Ringer's () 1,000 mls @ 100 mls/hr IV .Q10H [facility] Last Admin: 03/01/20 04:39 Dose: Not Given Documented by: Ibuprofen (Ibuprofen 600 Mg Tablet) 600 mg PO Q6H [facility] Last Admin: 03/01/20 04:39 Dose: 600 mg Documented by: Methylergonovine Maleate (Methylergonovine 0.2 Mg/Ml Ampul) 0.2 mg IM X1 PRN PRN Reason: Uterine Atony Nalbuphine HCl (Nalbuphine 10 Mg/Ml Ampul) 5 mg IV Q3H PRN PRN PRN Reason: ITCHING Stop: 03/01/20 14:17 Naloxone HCl (Naloxone 0.4 Mg/Ml Syringe) 0.02 mg IV Q1M PRN PRN Reason: RR <10 and pt unresponsive Ondansetron HCl (Ondansetron 4 Mg/2 Ml Vial) 4 mg IV Q4H PRN PRN PRN Reason: Nausea Last Admin: 02/29/20 16:35 Dose: 4 mg Documented by: Oxycodone HCl (Oxycodone 5 Mg Tablet) 5 - 10 mg PO Q4H PRN PRN PRN Reason: Pain Score 4-10 Prochlorperazine Edisylate (Prochlorperazine 10 Mg/2 Ml Vial) 10 mg IV Q6H PRN PRN PRN Reason: NAUSEA Senna/Docusate Sodium (Senna/Docusate Sodium 1 Tablet) 0 tablet PO DAILY [facility] Last Admin: 02/29/20 15:04 Dose: 1 tablet Documented by: Simethicone (Simethicone 80 Mg Tablet) 80 mg PO PCHS PRN PRN Reason: Indigestion/stomach pain Sodium Chloride (0.9% Saline Lock 10 Ml Syringe) 5 - 15 ml IV UD PRN PRN Reason: SALINE FLUSH Last Admin: 02/29/20 19:08 Dose: 10 ml Documented by: Medical Necessity - Tobacco Use Smoking Status: Never smoker Assessment/Plan Postoperative day 1 status post . Pain well controlled. Acute on chronic anemia iron sent to pharmacy. Breast-feeding. Okay to discharge home today if policy writer typist okay with discharging baby home.
[2020-03-01] MEDS: Senna/Docusate Sodium 1 Tablet PO (12:05)
== END 2020-03-01 13:45 | disposition home or self-care (01) | DRG 540 ==
PROVIDERS: Admitting Provider Obstetrics & Gynecology; Referring Provider Obstetrics & Gynecology; Visit Provider Obstetrics & Gynecology
PROC: 10D00Z1 Extraction of Products of Conception, Low, Open Approach (ICD-10-PCS; CPT 59514; principal; 2020-02-29 07:15)
DX: O13.4 Gestational [pregnancy-induced] hypertension without significant proteinuria, complicating childbirth (principal); O99.02 Anemia complicating childbirth; D64.9 Anemia, unspecified; O98.52 Other viral diseases complicating childbirth; B00.9 Herpesviral infection, unspecified; Z87.891 Personal history of nicotine dependence; Z3A.37 37 weeks gestation of pregnancy; Z37.0 Single live birth
CPT/HCPCS: 36415; 80307; 82565; 82570; 84156; 84450; 84460; 84550; 85025; 85027; 86850; 86900; 86901; 87426; 96372; 99218; J7120; A4216; G0378; J0702; J2405

== ENCOUNTER → 2020-06-13 | Outpatient (CLI) | payer MEDICAID, SELFPAY ==
[2020-02-29 05:15] VITALS: BMI 56.3
[2020-06-17 20:07] LABS: Chlamydia By Nucleic Acid AMP Negative (Negative)
[2020-06-17 21:17] LABS: Gonococcus By Nucleic Acid AMP Negative (Negative)
== END | disposition home or self-care (01) ==
LOC: LABSPEC 17:03
PROVIDERS: Visit Provider Obstetrics & Gynecology
DX: Z11.3 Encounter for screening for infections with a predominantly sexual mode of transmission (principal)
CPT/HCPCS: 87491; 87591